=== PATIENT | male | born 1945 | race Caucasian/White ===

== ENCOUNTER → 2018-05-26 14:06 | Outpatient (CLI) | payer MEDICARE, OTHER, SELFPAY ==
[2018-05-26 14:30] LABS: Abs Immature Grans 0.05 k/cumm (0.0-0.09); Absolute Basophil Count 0.04 k/cumm (0.0-0.2); Absolute Eosinophil Count 0.28 k/cumm (0.0-0.7); Absolute Lymphocyte Count 2.37 k/cumm (1.2-3.4); Absolute Monocyte Count 0.88 k/cumm (0.11-0.7); Absolute Neutrophil Count 4.74 k/cumm (1.2-6.7); Basophils % 0.5; Eosinophils % 3.3; HCT 40.7 % (40.0-50.0); HGB 13.9 g/dL (13.5-17.5); Immature Grans % 0.6; Lymphocytes % 28.3; Mean Corp. HGB Concentration 34.2 g/dL (32.0-36.0); Mean Corpuscular Hemoglobin 22.7 pg (27.0-33.0); Mean Corpuscular Volume 66.4 fL (80-95); Mean Platelet Volume 11.5 fL (8.0-11.0); Monocytes % 10.5; Neutrophils % 56.8; Platelet Count 222 x1000/uL (130-400); RBC 6.13 m/cumm (4.50-6.00); RBC Distribution Width 17.7 % (11.8-14.1); White Blood Cell Count 8.36 k/cumm (4.4-10.8)
[2018-05-26 14:58] LABS: Microcytosis 2+
[2018-05-26 15:03] LABS: ESR 10 MM/HR (1-20)
[2018-05-26 17:49] LABS: Potassium 4.8 mmol/L (3.5-5.1); Sodium 143 mmol/L (136-145)
[2018-05-26 17:50] LABS: Albumin 4.5 g/dL (3.4-5.0); Anion Gap 17.4 mmol/L (3-11); BUN 19 mg/dL (7-18); CO2 21.6 mmol/L (21.0-32.0); CREATININE 0.89 mg/dL (0.70-1.30); Chloride 104 mmol/L (98-107); Glucose 90 mg/dL (70-100); Total Protein 7.3 g/dL (6.4-8.2)
[2018-05-26 17:51] LABS: ALT 63 U/L (12-78); Alkaline Phosphatase 95 U/L (46-116); Bilirubin, Total 0.3 mg/dL (0.2-1.0); Creatine Kinase 196 U/L (39-308)
[2018-05-26 17:52] LABS: AST 41 U/L (15-37)
[2018-05-26 17:53] LABS: Calcium 9.1 mg/dL (8.5-10.1)
[2018-05-26 21:35] LABS: TSH 3.52 uIU/ml (0.47-4.68)
[2018-05-29 11:37] LABS: Anaplasma phagocytophilum Negative (Negative); B. miyamotoi PCR Negative (Negative); Babesia divergens/MO-1 Negative (Negative); Babesia duncani Negative (Negative); Babesia microti Negative (Negative); Ehrlichia chaffeensis Negative (Negative); Ehrlichia ewingii/canis Negative (Negative); Ehrlichia muris eauclairensis Negative (Negative)
[2018-05-31 15:03] LABS: T4, Free 1.1 ng/dl (0.8-2.2)
== END ==
PROVIDERS: PCP Family Medicine; Visit Provider Family Medicine
DX: M35.3 Polymyalgia rheumatica (principal); I10 Essential (primary) hypertension; E11.9 Type 2 diabetes mellitus without complications
CPT/HCPCS: 36415; 80053; 82550; 85652; 84439; 84443; 85025; 86618; 87798

== ENCOUNTER 2018-06-16 15:25 | Outpatient (RCR) | payer MEDICARE, OTHER, SELFPAY ==
--- NOTE | 2018-06-16 10:19 | IE_ITS ---
Date: June 16, 2018 Referring: Dr. Shraddha Treviño Diagnosis: Meralgia paresthetica R P.T. Diagnosis: Same, with gluteal tendinopathy and ITB syndrome SUBJECTIVE: History of Present Illness: Ed presents with complaints of R lateral thigh pain, which began about 8 weeks ago. He states that he first began noticing some aching through the buttock region extending into the lateral hip, with symptoms worsening with activities, specifically golfing and his daily walking program. He states that symptoms became quite severe with a biting type pain. Pain extends from the lateral hip down the thigh to the level of the knee. He does describe a sensation of weakness, stating that he is no longer able to get up from a squatting position. He, in fact, intermittently uses a cane, primarily for the purpose of helping him up from a low position. He has been placed on Gabapentin by his physician, and states that since then, his pain has been significantly improved. He continues to have activity dependent discomfort , although to a much tolerable degree. Pain Rating: Varies based on activity. Pt is unable to quantify on VAS. Pain Location: R lateral hip. Prior Level of Function: Active and independent 73 yo male. Pt is retired, although is extremely active with golfing. He also walks 1 mile/day for management of his diabetes. Current Level of Function: Pt does report some difficulty with his daily walks. He states that, at times, requires a standing rest period. Prior to beginning the gabapentin, he had been unable to golf, although has since resumed with good results. He describes difficulty squatting down to the floor, particularly the motion of getting back up and walking longer distances. Comorbidities: Type II diabetes. Falls in the last year: __X__Yes - How many? __1 related to the slip on ice__ - (if over 2, balance SM needs to be completed) Reported hospitalizations in the last year - __X__ No Medications: Flax seed, Nexium, acetaminophen, vitamin C, 81 mg aspirin, Aleve, Lisinopril, Tamsulosin, Januvia, Glimepiride and Gabapentin. Quality of Life: __X__ Good Standardized Measures: LEFS score: __7% deficit__ OBJECTIVE: Posture: Pt demonstrates rounded shoulder forward head posturing with increased thoracic kyphosis and significant cervical protraction. No alteration of stance or forward trunk positioning. Gait: Grossly non-antalgic. He is independent with bed mobility and transfers without any obvious difficulty. Palpation: Mild tenderness along the length of the ITB. Significant tenderness through the gluteal tendons and the gluteal muscle bellies, particularly through the glute med on the R. ROM: Trunk motion is full and pain free. Hip ROM grossly WNL with some mild end range pain at IR, although this allows 30 degrees and is comparable with the L side. He does have diminished piriformis length on the R as compared to the L by greater than 50%. Hamstring length allows 65 degrees bilaterally. Strength: Hip flexion 4/5 R, 5/5 L Hip IR 4/5 bilaterally, ER 4/5 bilaterally Quads 5/5 bilaterally Hamstrings 4/5 bilaterally Ankle dorsiflexion 5/5 bilaterally Glute med R 3+/5 with positive pain reproduction through the lateral hip Neuro: Dermatomes and myotomes WNL. DTRs 1+ for the patella tendon reflex bilaterally, absent at the Achilles. Special Tests: Pt has a positive Cuate test on the R with knee 2 in. from the plinth. SLR is negative. Slump test negative. Treatment: Today's session consisted of evaluation, followed by long discussion regarding appropriate treatment planning and care. Pt received trigger point release to the gluteus medius and cross friction massage to the gluteal tendons. He was instructed in a HEP beginning with pelvic tilts and transverse abdominal activation, progressing to bridges and prone hip extension. He requires verbal and tactile cues for appropriate completion, although with excellent carry over. IE: X [id number] Therapeutic procedures ([id number]). Direct treatment time: 60 min Total treatment time: 60 min ASSESSMENT: Patient is a 73-year-old male, referred for PT services with the diagnosis of meralgia paresthetica on the R. Patient presents with clinical signs and symptoms consistent with diagnosis with associated gluteal weakness and ITB syndrome, which I suspect are contributing to his diagnosis. He did demonstrate significant muscle imbalance today, and I anticipate that he will do well with a progressive strengthening program. This is very well timed given that he has had significant symptom reduction on gabapentin, which will likely allow him to tolerate progressive strengthening program better. He is currently demonstrating the following impairment level findings: decreased muscle length through the R piriformis, hamstrings and ITB, soft tissue dysfunction, decreased strength through the RLE, pain. Impairments are contributing to the following functional limitations: difficulty participating in his normal recreational activities, specifically golfing and walking program, difficulty walking longer distances, unable to independently transition from squat position to standing without UE support, pain with activity. Patient is assessed as: __X__ Moderate 35146 complexity, based on the following: History: (list): Insidious onset R thigh pain in pt with type II diabetes and advanced age. Examination: (list): X See above for functional limitations and impairments. Presentation: X Evolving Decision-Making: X Moderate complexity __X__ Patient requires skilled PT intervention to remediate the above functional limitations to return to: __X__ Premorbid level of function __X__ Return to full functional mobility __X__ Return to work demands __X__ Improve QOL ____ Other: Prognosis: __X__ Good G-Codes (fill in modifier after appropriate code): Patient's primary functional limitation is in the category of: __X__ Mobility - walking and moving around : [id number] based on LEFS score Projected goal: ___X_ Mobility - walking and moving around: [id number] [] KX modifier to be utilized as justified by above documentation for necessity of continued Physical Therapy intervention to attend to functional deficits which have not been fully remediated as they approach their Medicare cap. STG: __6__ weeks. 1. Pt able to complete walking program without pain. 2. Able to tolerate introduction of exercise program without increase in symptoms. LTG: __12__ weeks. 1. Pt able to resume golf 2x/week without pain. 2. Fully independent in self management of symptoms. 3. Resolution of symptoms of lateral thigh pain. PLAN: Patient to be seen 1 x per week, for 12 weeks, adjusting frequency of visits per patient symptoms and response to treatment. Treatment will consist of manual mobilization and progressive strengthening. Will instruct pt in progressive gluteal strengthening program with both open and closed chain strengthening activities. Will incorporate manual stretching through the LE's and DTM techniques through the hip musculature. Will also consider utilization of dry needling techniques for [facility] services shoulder pt continue to have significant soft tissue dysfunction. Will instruct him in a progressive strengthening program as he is able to tolerate. Thank you for this referral. Please do not hesitate to contact me with any questions or concerns regarding this patient's plan of care. SS/fw MEDICAREDr. Llanes, please sign below and return to PT if you agree with above POC. Gilberto Llanes MD Date
== END 2018-06-23 23:59 | disposition home or self-care (01) ==
LOC: PT 15:25
PROVIDERS: PCP Family Medicine; Referring Provider Family Medicine; Visit Provider Family Medicine
DX: G57.11 Meralgia paresthetica, right lower limb (principal); M76.01 Gluteal tendinitis, right hip; M76.31 Iliotibial band syndrome, right leg
CPT/HCPCS: 97110; 97162; G8978

== ENCOUNTER 2018-11-07 09:03 | Outpatient (CLI) | payer MEDICARE, OTHER, SELFPAY ==
[2018-11-07 09:49] LABS: Bilirubin Negative (Negative); Blood Negative (Negative); Clarity Clear; Glucose Negative (Negative); Ketones Negative (Negative); Leukocyte Esterase Negative (Negative); Nitrite Negative (Negative); Urobilinogen 0.2 EU/dL (Up TO 0.2)
[2018-11-07 09:53] LABS: Abs Immature Grans 0.04 k/cumm (0.0-0.09); Absolute Basophil Count 0.04 k/cumm (0.0-0.2); Absolute Eosinophil Count 0.16 k/cumm (0.0-0.7); Absolute Lymphocyte Count 2.33 k/cumm (1.2-3.4); Absolute Monocyte Count 0.76 k/cumm (0.11-0.7); Absolute Neutrophil Count 4.32 k/cumm (1.2-6.7); Basophils % 0.5; Eosinophils % 2.1; HCT 41.4 % (40.0-50.0); HGB 13.6 g/dL (13.5-17.5); Immature Grans % 0.5; Lymphocytes % 30.5; Mean Corp. HGB Concentration 32.9 g/dL (32.0-36.0); Mean Corpuscular Hemoglobin 21.8 pg (27.0-33.0); Mean Corpuscular Volume 66.2 fL (80-95); Mean Platelet Volume 11.6 fL (8.0-11.0); Monocytes % 9.9; Neutrophils % 56.5; RBC 6.25 m/cumm (4.50-6.00); RBC Distribution Width 17.7 % (11.8-14.1); White Blood Cell Count 7.65 k/cumm (4.4-10.8)
[2018-11-07 10:06] LABS: Anisocytosis 1+; Diff Comment RBC Morph Reviewed; Hypochromasia 1+; Microcytosis 2+; Platelet Count 207 x1000/uL (130-400); Polychromasia Present
[2018-11-07 10:07] LABS: Poikilocytes 1+
[2018-11-07 10:43] LABS: ALT 75 U/L (12-78); AST 34 U/L (15-37); Albumin 4.4 g/dL (3.4-5.0); Alkaline Phosphatase 93 U/L (46-116); Anion Gap 9.3 mmol/L (3-11); BUN 19 mg/dL (7-18); Bilirubin, Total 0.4 mg/dL (0.2-1.0); CO2 30.7 mmol/L (21.0-32.0); Calcium 9.8 mg/dL (8.5-10.1); Chloride 101 mmol/L (98-107); Glucose 110 mg/dL (70-100); Potassium 4.2 mmol/L (3.5-5.1); Sodium 141 mmol/L (136-145); Total Protein 7.6 g/dL (6.4-8.2)
[2018-11-07 10:52] LABS: TSH (W/Ref FT4) 3.01 uIU/mL (0.358-3.74)
== END 2018-11-07 09:23 ==
PROVIDERS: PCP Family Medicine; Visit Provider Family Medicine
DX: I88.9 Nonspecific lymphadenitis, unspecified (principal); M35.3 Polymyalgia rheumatica; I10 Essential (primary) hypertension; E11.9 Type 2 diabetes mellitus without complications
CPT/HCPCS: 36415; 80053; 81003; 84443; 85025

== ENCOUNTER → 2019-02-27 08:50 | Outpatient (BNVA) | payer MEDICARE, OTHER, SELFPAY | PROVIDERS: PCP Family Medicine; Referring Provider Family Medicine; Visit Provider Orthopaedic Surgery | DX: M65.332 Trigger finger, left middle finger (principal); M65.342 Trigger finger, left ring finger; E11.9 Type 2 diabetes mellitus without complications; I10 Essential (primary) hypertension; Z79.84 Long term (current) use of oral hypoglycemic drugs | CPT/HCPCS: 99211; 99213 ==

== ENCOUNTER 2019-03-09 06:30 | Day surgery (SDC) | payer MEDICARE, SELFPAY ==
[2019-03-09 06:39] VITALS: BP 160/87; PULSE 76; RESP 16; TEMP 36.9; O2SAT 98
[2019-03-09] MEDS: Lidocaine 2% Multi-Dose 50 ML VIAL (07:30)
--- NOTE | 2019-03-09 07:59 | W.PM.DSUDISC ---
Discharge Plan Disposition Patient Disposition: HOME Condition: Improving Discharge Details Attending Provider: Anibal Modi Primary Care Provider: Gilberto Llanes Home Meds and New Rx's Prescriptions: No Action OneTouch Ultra Test strip 1 ea Miscellaneous BID Qty: 200 RF: 3 Januvia 100 mg tablet 100 mg PO DAILY Qty: 30 RF: 6 glimepiride 1 mg tablet 1 mg PO DAILY Qty: 90 RF: 3 flaxseed-omega3,6,9-fatty acid 1 EACH capsule 1 ea PO DAILY RF: 0 Nexium 24HR 20 MG capsule,delayed release(DR/EC) 20 mg PO DAILY RF: 0 acetaminophen [Acetaminophen Extra Strength] 500 MG tablet 500 mg PO Q4H PRN RF: 0 PreserVision AREDS-2 1 EACH capsule 1 ea PO DAILY RF: 0 aspirin [Aspir-81] 81 MG tablet,delayed release (DR/EC) 81 mg PO DAILY RF: 0 naproxen sodium [Aleve] 220 MG tablet 220 mg PO Q8H PRN RF: 0 lancets [OneTouch UltraSoft Lancets] 1 EACH misc 1 ea Miscellaneous BID Qty: 200 RF: 3 blood-glucose meter [OneTouch Ultra2] 1 EACH kit 1 ea Miscellaneous BID Qty: 1 RF: 1 lisinopril 5 mg tablet 5 mg PO DAILY Qty: 90 RF: 3 tamsulosin 0.4 mg capsule 0.4 mg PO DAILY Qty: 90 RF: 3 fluticasone propionate 16 GM spray,suspension 2 inh NS PRN Qty: 1 RF: 3 Discharge Instructions Additional Instructions: Keep your left hand elevated above heart level as needed to help control pain and swelling. You may flex and extend all the fingers of your left hand as comfort allows. Expect a small amount of drainage on the gauze bandages. For showering tomorrow, cover your left hand with a plastic bag and a rubber band about the upper forearm to keep the bandages dry and allow the wounds to seal. On 03/11/19, you may remove all of your bandages and get your wounds wet in the shower with soap and water. Gently pat the stitches dry and cover them with bandaids, or gauze or a clean fingerless cotton glove to keep the stitches from catching. Resume normal activities as tolerated. Take your usual medications as before. Take tylenol, advil or aleve for milder pain. Tylenol maybe taken at the same time as advil, or at the same time as aleve as they are metabolized differently and are not cross toxic. Follow up with Dr. Modi in 1 week for stitch removal. Activity:: Elevate Remove Dressings/Wound Care:: 48 hours Shower/Bathe:: 24 hours and Cover Diet:: As Tolerated Discharge Orders Discharge Orders: Discharge Order (Routine); Ordered 03/09/19 Ordered By: Anibal Modi DS: Diagnosis Discharge Diagnosis (1) Trigger finger, right ring finger: Status: Acute (2) Trigger finger, right middle finger: Status: Acute
--- NOTE | 2019-03-09 11:34 | ROE_ITS ---
DATE OF PROCEDURE: March 09, 2019 PREOPERATIVE DIAGNOSIS: Trigger fingers, left middle and left ring fingers. POSTOPERATIVE DIAGNOSIS: Same. PROCEDURE: Release A-1 pulleys to left ring and middle fingers. SURGEON: Anibal Modi M.D. LABORATORY MACHINIST: Tech ANESTHETIC: 2% Lidocaine plain. PREP: ChloraPrep. INDICATIONS: This patient has had longstanding triggering of the ring and middle fingers of his left hand. It interferes with his hobby of playing golf. He was seen by me in the office about 2 to 3 w eeks ago and I recommended trigger finger releases. He had had previous trigger finger surgery by me a few years ago on the right hand with no complications. I reviewed the planned procedure with him in the office and re-reviewed them today in the Day Surgery holding area. I marked his left ring and middle fingers with a surgical skin marker. He wished to proceed. PROCEDURE DESCRIPTION: The patient was taken to the Operating Room and his left hand was prepped wit h ChloraPrep. Sterile drapes were applied. A time-out was instituted. I then used 2% Lidocaine over the metacarpophalangeal joint region of both the middle and ring finger s to create an anesthetic wheal. I then waited an appropriate amount of time to make sure there was complete anesthesia to the fingertips of the middle and ring fingers. Once this was accomplished, I made a transverse incision near the metacarpophalangeal joint crease in the palm. This was about 3/8 of an inch long. After solely incising the skin with a #15 scalpel blade, retraction was done with Ragnell retractors and blunt dissection was used to identify the flexor tendon sheath. Under direct vision, a #15 scalpel blade was used to make a small knick in the sheath and then this was extended w rebeca Galvez scissors. I then had the patient flex his middle finger and he could do so without any t riggering. It was triggering prior to the beginning of surgery today. Having verified that the zack ent could make a tightly clenched fist and that there was no triggering, I then proceeded to make a s imilar 3/8-inch incision over the metacarpophalangeal joint of the ring finger. Again, loupe magnifi cation was utilized throughout and blunt dissection was used to identify the flexor tendon sheath. T his was incised with a #15 scalpel blade, making a small knick in it and then extending the incision proximally. I then had him flex and extend his ring finger and it was no longer triggering. Again, it had been triggering right before today's surgical intervention. I then showed the patient his joshi d and had him make a tightly clenched fist and demonstrated full flexion and extension. The wounds w ere irrigated with saline and closed with a single suture of #4-0 Nylon in a horizontal mattress fash ion. The wound was dressed with Xeroform gauze 4x4's and a 2-inch conforming gauze bandage. He was taken to the outpatient recovery room in satisfactory condition, tolerating the procedure well.
== END 2019-03-09 08:20 | disposition home or self-care (01) ==
PROVIDERS: PCP Family Medicine; Visit Provider Orthopaedic Surgery
PROC: (CPT 26055; principal; 2019-03-09 07:30)
DX: M65.332 Trigger finger, left middle finger (principal); M65.342 Trigger finger, left ring finger
CPT/HCPCS: 26055

== ENCOUNTER 2020-03-28 11:01 | Outpatient (REF) | payer MEDICARE, OTHER, SELFPAY ==
[2020-03-28 18:54] LABS: Abs Immature Grans 0.06 k/cumm (0.0-0.09); Absolute Basophil Count 0.04 k/cumm (0.0-0.2); Absolute Eosinophil Count 0.27 k/cumm (0.0-0.7); Absolute Lymphocyte Count 2.04 k/cumm (1.2-3.4); Absolute Monocyte Count 0.91 k/cumm (0.11-0.7); Absolute Neutrophil Count 5.03 k/cumm (1.2-6.7); Basophils % 0.5; Eosinophils % 3.2; HCT 37.9 % (40.0-50.0); HGB 12.6 g/dL (13.5-17.5); Immature Grans % 0.7 %; Lymphocytes % 24.4; Mean Corp. HGB Concentration 33.2 g/dL (32.0-36.0); Mean Corpuscular Hemoglobin 22.2 pg (27.0-33.0); Mean Corpuscular Volume 66.7 fL (80-95); Mean Platelet Volume 11.9 fL (8.0-11.0); Monocytes % 10.9; Neutrophils % 60.3; Platelet Count 228 x1000/uL (130-400); RBC 5.68 m/cumm (4.50-6.00); RBC Distribution Width 17.6 % (11.8-14.1); White Blood Cell Count 8.35 k/cumm (4.4-10.8)
[2020-03-28 19:42] LABS: ESR 16 mm/hr (1-20)
== END 2020-03-28 11:21 ==
LOC: LBN 11:01
PROVIDERS: PCP Family Medicine; Visit Provider Family Medicine
DX: I88.8 Other nonspecific lymphadenitis (principal)
CPT/HCPCS: 85652; 85025

== ENCOUNTER 2020-04-04 03:35 | Outpatient (CLI) | payer MEDICARE, OTHER, SELFPAY ==
--- NOTE | 2020-04-04 07:45 | DI.US_ITS ---
EXAM: US SOFT TISSUE HEAD OR NECK CLINICAL HISTORY: Painful lymphadenitis, L side,i88.9. TECHNIQUE: Ultrasound was performed using standard protocol. COMPARISON: No exams were available for comparison FINDINGS: Sonographic assessment utilizing grayscale and color Doppler imaging was performed and targeted to th e area of clinical concern. There is a 1.1 x 0.8 x 1.2 cm hypoechoic nodule with an echogenic vascular center consistent with a s onographically benign-appearing lymph node. This appears to correspond to the palpable abnormality. It lies adjacent to the parotid gland. IMPRESSION: Sonographically benign-appearing lymph node corresponds to the palpable abnormality as identified by the patient. DATA REPOSITORY:
== END 2020-04-04 03:55 ==
PROVIDERS: PCP Family Medicine; Visit Provider Family Medicine
DX: I88.8 Other nonspecific lymphadenitis (principal); R59.0 Localized enlarged lymph nodes
CPT/HCPCS: 76536

== ENCOUNTER 2020-07-11 04:18 | Outpatient (RCR) | payer MEDICARE, OTHER, SELFPAY | END 2020-07-23 23:59 | disposition home or self-care (01) | LOC: INF 04:18 | PROVIDERS: PCP Family Medicine; Visit Provider Family Medicine | DX: Z87.891 Personal history of nicotine dependence (principal) ==

== ENCOUNTER 2020-08-25 14:38 | Outpatient (CLI) | payer MEDICARE, OTHER, SELFPAY ==
--- NOTE | 2020-08-25 14:15 | DI.RAD_ITS ---
EXAM: XR LUMBAR SPINE COMPLETE CLINICAL HISTORY: left lower extremity sensation. TECHNIQUE: 2D digital imaging was performed. COMPARISON: No exams were available for comparison FINDINGS: There are 5 lumbar type vertebral bodies. No spondylolysis or spondylolisthesis. Disc heights are w ell maintained. There are endplate osteophytes throughout the lumbar spine. Degenerative facet arth ropathy is present at L4-5 and L5-S1. No acute fracture or subluxation. Atherosclerosis is present. IMPRESSION: Degenerative changes in the lumbar spine. DATA REPOSITORY: RADIATION DOSE DELIVERED:
--- NOTE | 2020-08-25 14:32 | DI.RAD_ITS ---
EXAM: XR KNEE RT 3V AP,LAT,ELIAN CLINICAL HISTORY: right knee pain. TECHNIQUE: 2D digital imaging was performed. COMPARISON: CR CHEST 2 VIEWS PA,LAT from 03/14/2015 FINDINGS: BONES: No acute fracture is present. No bony destructive lesion is seen. Small enthesophytes at the s uperior and inferior patella. JOINTS: The knee is normally aligned. No joint effusion is seen. Small posterior osteophytes at the p atella. SOFT TISSUE: Vascular calcifications. IMPRESSION: Mild degenerative changes of the knee. DATA REPOSITORY: RADIATION DOSE DELIVERED:
--- NOTE | 2020-08-25 14:34 | DI.RAD_ITS ---
EXAM: XR KNEE LT 3V AP,LAT,ELIAN CLINICAL HISTORY: left knee DJD. TECHNIQUE: 2D digital imaging was performed. COMPARISON: CR XR KNEE RT 3V AP,LAT,ELIAN from 08/25/2020 FINDINGS: BONES: No acute fracture is present. No bony destructive lesion is seen. JOINTS: The knee is normally aligned. No joint effusion is seen. Mild patellar spurring. SOFT TISSUE: Vascular calcifications. IMPRESSION: Mild degenerative changes of the left knee. DATA REPOSITORY: RADIATION DOSE DELIVERED:
== END 2020-08-25 14:58 ==
PROVIDERS: PCP Family Medicine; Referring Provider Family Medicine; Visit Provider Student in an Organized Health Care Education/Training Program
DX: M17.0 Bilateral primary osteoarthritis of knee (principal); M47.816 Spondylosis without myelopathy or radiculopathy, lumbar region; M25.562 Pain in left knee; M25.561 Pain in right knee; M79.605 Pain in left leg; M54.5 Low back pain; G89.29 Other chronic pain; I10 Essential (primary) hypertension
CPT/HCPCS: 73562; 99203; 99214; 72110

== ENCOUNTER → 2020-10-07 10:52 | Outpatient (BNVA) | payer MEDICARE, OTHER, SELFPAY | PROVIDERS: PCP Family Medicine; Referring Provider Family Medicine; Visit Provider Surgery | DX: K92.1 Melena (principal); Z86.010 Personal history of colon polyps | CPT/HCPCS: 99213 ==

== ENCOUNTER 2020-10-29 14:47 | Emergency (ER) | payer MEDICARE, OTHER, SELFPAY ==
[2020-10-29] VITALS (44 sets, daily range): BP systolic 109–172; BP diastolic 60–111; PULSE 80–111; RESP 8–20; TEMP 36.3; O2SAT 95–100
--- NOTE | 2020-10-29 14:45 | RT.EKG_ITS ---
APPROVED REPORT Exam: Resting ECG Patient Location: E HR:104 bpm ECG Measurements Heart Rate 104 AXIS OH 159 P 53 QRSd 112 QRS -53 QT 359 T 20 QTc 471 Conclusion Sinus tachycardia...rate> 99 Incomplete RBBB and LAFB...axis(240,-40), S>R II III aVF Nonspecific ST depression...ST <-0.10mV, any 2 leads
[2020-10-29] MEDS: methylPREDNISolone SUCC 125 MG VIAL (15:06)
[2020-10-29] MEDS: diphenhydrAMINE 50 MG/ML VIAL (15:06)
[2020-10-29] MEDS: FAMOTIDINE 20 MG/50 ML BAG 50 MG (15:07)
--- NOTE | 2020-10-29 15:24 | ED.GENADUL_ITS ---
Discharge Plan Disposition Patient Disposition: HOME Condition: Stable Discharge Details Clinical Impression: Severe allergic reaction, Hyperglycemia Primary Care Provider: Gilberto Llanes ED Provider: Beny Penny Home Meds and New Rx's Prescriptions: New prednisone 20 mg tablet 40 mg PO DAILY Qty: 8 RF: 0 diphenhydramine HCl [Benadryl] 25 mg capsule 25 mg PO TID PRNQty: 9 RF: 0 Continued (DME) OneTouch Ultra Test strip 1 ea Miscellaneous BID Qty: 200 RF: 3 bisacodyl [Dulcolax (bisacodyl)] 5 mg tablet,delayed release (DR/EC) 5 mg PO ONCE Qty: 4 RF: 0 polyethylene glycol 3350 17 gram powder in packet 255 g PO DAILY Qty: 15 RF: 0 flaxseed-omega3,6,9-fatty acid 1 EACH capsule 1 ea PO DAILY RF: 0 Nexium 24HR 20 MG capsule,delayed release(DR/EC) 20 mg PO DAILY RF: 0 acetaminophen [Acetaminophen Extra Strength] 500 MG tablet 500 mg PO Q4H PRN RF: 0 PreserVision AREDS-2 1 EACH capsule 1 ea PO DAILY RF: 0 aspirin [Aspir-81] 81 MG tablet,delayed release (DR/EC) 81 mg PO DAILY RF: 0 Hold Instructions: Home Medication placed on hold at Doctor's office naproxen sodium [Aleve] 220 MG tablet 220 mg PO Q8H PRN RF: 0 (DME) lancets [OneTouch UltraSoft Lancets] 1 EACH misc 1 ea Miscellaneous BID Qty: 200 RF: 3 (DME) blood-glucose meter [GoodpatchTouch Ultra2 Meter] 1 EACH kit 1 ea Miscellaneous BID Qty: 1 RF: 1 Januvia 100 mg tablet 100 mg PO DAILY Qty: 90 RF: 3 avastin OD RF: 0 lisinopril 5 mg tablet 5 mg PO DAILY Qty: 90 RF: 3 glimepiride 1 mg tablet 1 mg PO DAILY Qty: 90 RF: 3 finasteride 5 mg tablet 5 mg PO DAILY Qty: 90 RF: 3 tamsulosin 0.4 mg capsule 0.4 mg PO DAILY Qty: 90 RF: 3 fluticasone propionate 16 GM spray,suspension 2 inh NS PRN Qty: 1 RF: 3 Discontinued amoxicillin 875 mg tablet 875 mg PO BID Qty: 20 RF: 0 Discharge Instructions Instructions: Diabetic Hyperglycemia (ED), General Allergic Reaction (ED) Additional Instructions: Your blood sugar today was elevated. You received IV fluid and it did improve slightly. Please contact your primary care physician to arrange follow-up. You may need medication adjustment to control your diabetes if your sugars remain elevated. Return to the ER for any worsening or new concerning symptoms. Referrals: Gilberto Llanes, DO [Primary Care Provider] - Medical Decision Making 1533??75-year-old male here with immediate allergic reaction to amoxicillin. Patient notes symptoms improving. Airway intact. Hemodynamically stable. I will give IV fluid bolus, Pepcid, Benadryl, and Solu-Medrol IV. Plan to reassess. I spoke with the patient about his condition and treatment plan. Patient had complained of some tightness in his neck to nursing and a protocol and ECG was obtained. Screening EKG reviewed and interpreted by me: Nondiagnostic, no STEMI, please see report. 1900 --patient reassessed multiple times. He had complete resolution of his symptoms. Initial labs revealed hyperglycemia with a mild anion gap acidosis. No ketones in his urine. He received crystalloid bolus and chemistry was repeated. He continues to have hyperglycemia although this is improved and no longer has anion gap acidosis. He notes that he only recently restarted Januvia and that typically his blood sugar is in the 100s when he checks in the morning.Patient will need timely follow-up with his PCP regarding hyperglycemia with consideration for transition to insulin therapy. Patient will be monitoring his blood glucose closely. Plan to discharge the patient on prednisone and Benadryl and have him follow-up with PCP to call tomorrow. He was encouraged to return immediately for any worsening or new concerning symptoms. He understands he should not take amoxi cillin or penicillins in the future. HPI General Mode of arrival: ambulatory . Date/Time Provider Initiated Documentation: 10/29/20 15:19 . Limitations to Documentation: no limitations . Information obtained by: patient . HPI Narrative: 75yo male presents with chief complaint of allergic reaction. Patient notes the he had a small lump inferior to his left ear and took a dose of amoxicillin. He has done this in the past for similar and it has improved while. He has tolerated amoxicillin in the past. Today about half hour after taking amoxicillin he developed full body itchy red rash, feeling of nausea and loose stool. He also notes some tightness in his neck and throat. Symptoms are moderate to severe, improving since onset about 45 minutes ago. He did not try any treatment prior to arrival. No modifiers. Related Data Home Medications Medication Instructions Recorded Confirmed flaxseed-omega3,6,9-fatty acid 1 ea PO DAILY 12/25/12 10/29/20 Nexium 24HR 20 mg PO DAILY 08/12/14 10/29/20 acetaminophen [Acetaminophen Extra 500 mg PO Q4H PRN tab-cap 05/20/15 10/29/20 Strength] PreserVision AREDS-2 1 ea PO DAILY 07/04/15 10/29/20 aspirin [Aspir-81] 81 mg PO DAILY tab-cap 07/05/16 10/28/20 fluticasone propionate 2 inh NS PRN #1 07/13/16 10/29/20 naproxen sodium [Aleve] 220 mg PO Q8H PRN tab-cap 11/29/16 10/29/20 blood-glucose meter [OneTouch #1 kit 02/28/17 10/28/20 Ultra2 Meter] lancets [OneTouch UltraSoft #200 ea 02/28/17 10/28/20 Lancets] blood sugar diagnostic #200 strip 07/07/18 10/28/20 sitagliptin 100 mg tablet 100 mg PO DAILY #90 tab 01/10/20 10/29/20 avastin OD 01/15/20 10/28/20 lisinopril 5 mg tablet 5 mg PO DAILY #90 tab 02/14/20 10/29/20 glimepiride 1 mg tablet 1 mg PO DAILY #90 tab-cap 03/20/20 10/29/20 finasteride 5 mg tablet 5 mg PO DAILY #90 tab 07/14/20 10/29/20 bisacodyl 5 mg tablet,delayed 5 mg PO ONCE #4 tab 10/07/20 10/29/20 release polyethylene glycol 3350 17 gram 255 g PO DAILY #15 ea 10/07/20 10/29/20 oral powder packet tamsulosin 0.4 mg capsule 0.4 mg PO DAILY #90 tab-cap 10/13/20 10/29/20 diphenhydramine HCl [Benadryl] 25 mg PO TID PRN #9 cap 10/29/20 prednisone 40 mg PO DAILY #8 tab 10/29/20 Previous Rx's Medication Instructions Recorded blood sugar diagnostic #200 strip 07/07/18 sitagliptin 100 mg tablet 100 mg PO DAILY #90 tab 01/10/20 lisinopril 5 mg tablet 5 mg PO DAILY #90 tab 02/14/20 glimepiride 1 mg tablet 1 mg PO DAILY #90 tab-cap 03/20/20 finasteride 5 mg tablet 5 mg PO DAILY #90 tab 07/14/20 bisacodyl 5 mg tablet,delayed 5 mg PO ONCE #4 tab 10/07/20 release polyethylene glycol 3350 17 gram 255 g PO DAILY #15 ea 10/07/20 oral powder packet tamsulosin 0.4 mg capsule 0.4 mg PO DAILY #90 tab-cap 10/13/20 diphenhydramine HCl [Benadryl] 25 mg PO TID PRN #9 cap 10/29/20 prednisone 40 mg PO DAILY #8 tab 10/29/20 Allergies Allergy/AdvReac Type Severity Reaction Status Date / Time amoxicillin Allergy Severe Anaphylaxsi Unverified 10/29/20 15:43 s niacin Allergy rash Verified 10/07/20 10:57 atorvastatin calcium AdvReac muscle pain Verified 10/07/20 10:57 [From Lipitor] lansoprazole [From Prevacid] AdvReac diarrhea Verified 10/07/20 10:57 metformin AdvReac diarrhea Verified 10/07/20 10:57 omeprazole [From Prilosec] AdvReac diarrhea Verified 10/07/20 10:57 omeprazole magnesium AdvReac diarrhea Verified 10/07/20 10:57 [From Prilosec] pantoprazole sodium AdvReac diarrhea Verified 10/07/20 10:57 [From Protonix] General Stated Complaint: Allergic VINNIE: 3 Review of Systems All systems reviewed & are unremarkable except as noted in HPI and below Constitutional Constitutional: Denies chills and Denies fever(s) Cardiovascular Cardiovascular: Denies dyspnea Respiratory Respiratory: Denies dyspnea Gastrointestinal Gastrointestinal: Reports as per HPI and Denies abdominal pain PFSH Medical History Age-related macular degeneration (01/01/14) Dr Zee rx eye injections. Series of 3 injections with Avastin #1 05/30/18 #2 07/11/18 #3 11/17/18 Allergic rhinitis due to pollen (11/07/05) 10/2005 Benign prostatic hyperplasia without lower urinary tract symptoms (11/23/99) Degenerative joint disease (DJD) of lumbar spine Essential hypertension (03/24/01) goal <140/80 due to DM2 Gastroesophageal reflux disease (10/23/99) nexium effective; ? Tan's on EGD 12/02/1999 neg path; neg 2005 [place] Hyperlipidemia (02/20/98) 08/2001 statin; risk 27%, LDL goal 100; very low HDL and high TG Impotence (10/23/99) Knee pain, left (03/11/15) trauma 06/2014; medial L knee pain; x-ray mild DJD at most Lower urinary tract symptoms (LUTS) 11/1999; rx doxazosin, chg to tamsulosin 06/2015 Lymphadenopathy of left cervical region Nonalcoholic steatohepatitis (GRAHAM) 11/01; ABNL LFT AND US, US REPEAT 2011 Rectal polyp (07/13/16) Biopsy shows fragment of hyperplastic polyp Sensorineural hearing loss, bilateral (05/05/18) Sensorineural hearing loss, unilateral (04/04/17) Sigmoid polyp (07/13/16) Biopsy shows fragment of tubular adenoma Thalassemia minor (03/12/98) low MCV, Hue trait on Hb test 02/28 Tubular adenoma of colon (07/13/16) Type II diabetes mellitus, uncontrolled Goal A1c<7.5 Unspecified arthropathy, pelvic region and thigh (07/24/10) Right hip pain - likely arthritis - 08/02 Surgical History Colonoscopy - MAC (07/13/16) [place]03[place]24[place]12[place] [facility] [place] ALSO MAC DEG Repair of umbilical hernia (03/16/11) Dr Ger Gay Family History Mother Age: 99 No problems noted. Father , pneumonia at age 90. No problems noted. Sister No problems noted. Sister No problems noted. Sister No problems noted. Sister No problems noted. Sister No problems noted. Sister No problems noted. Brother Diabetes Brother No problems noted. Brother No problems noted. 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 Working smoke detector in home: Yes Fire extinguisher in home: Yes Carbon monox detector in home: Yes Do you feel safe at home: Yes Do you feel safe in your relationship?: Yes Exam Const General: cooperative and healthy appearing [facility] Head: normocephalic Face and sinus: normal facial exam and sinuses nontender Mouth: moist mucous membranes Throat: posterior oropharynx normal Other: No significant swelling or inflammation of his left face or periauricular area Eyes Conjunctivae: normal conjunctivae Sclera: normal sclerae Neck Neck: trachea midline and supple Resp Auscultation: clear to auscultation bilaterally, no rales, no rhonchi and no wheezes Cardio Rate: regular rate and not tachycardic Rhythm: regular rhythm GI Palpation: soft, not firm, no guarding, no masses, not rigid and nontender Skin Rashes: rashes noted (Erythema neck chest bilateral upper extremities) Neuro General: patient alert, patient awake and tone normal Extrem General: no edema Psych Appearance: grossly normal Mental Status: mental status grossly normal Course Vital Signs Vital signs: Vital Signs Pulse Oximetry 96 10/29/20 14:53 Temperature 36.3 C L 10/29/20 14:57 Temperature Source Temporal Artery Scan 10/29/20 14:57 Pulse 89 10/29/20 15:15 Pulse 92 H 10/29/20 15:15 Respiratory Rate 10 L 10/29/20 15:15 Respiratory Effort Non-Labored 10/29/20 15:03 Respiratory Pattern Normal 10/29/20 15:04 Blood Pressure 133/71 10/29/20 15:15 Blood Pressure Mean 85 10/29/20 15:15 Blood Pressure Position Sitting 10/29/20 14:57 Pulse Oximetry 100 10/29/20 15:15 Oxygen Delivery Method Room Air 10/29/20 14:57 Oxygen Flow Rate 0 10/29/20 14:57 Pain Level 0 10/29/20 14:57
[2020-10-29 15:49] LABS: Abs Immature Grans 0.07 10^3/uL (0.0-0.06); Absolute Basophil Count 0.04 10^3/uL (0.0-0.2); Absolute Eosinophil Count 0.13 10^3/uL (0.0-0.7); Absolute Lymphocyte Count 2.79 10^3/uL (1.2-3.4); Absolute Monocyte Count 0.39 10^3/uL (0.1-0.8); Basophils % 0.6; Eosinophils % 1.9; HCT 44.2 % (40.0-50.0); HGB 14.2 g/dL (13.5-17.5); Lymphocytes % 39.7; MCH 22.2 pg (27.0-33.0); MCHC 32.1 % (32.0-36.0); MCV 69.1 fL (80-95); MPV 11.7 fL (8.0-11.0); Monocytes % 5.6; Neutrophils % 51.2; Nucleated RBC 0 %; RDW 17.3 % (11.8-14.1); RDW-SD 38.4 fL; WBC 7.02 10^3/uL (4.4-10.8)
[2020-10-29 16:06] LABS: Albumin 4.1 g/dL (3.4-5.0); Alkaline Phosphatase 104 U/L (46-116); Anion Gap 14.6 mmol/L (3-11); BUN 21 mg/dL (7-18); Bilirubin, Total 0.6 mg/dL (0.2-1.0); CO2 21.4 mmol/L (21.0-32.0); CREATININE 1.46 mg/dL (0.70-1.30); Calcium 8.9 mg/dL (8.5-10.1); Chloride 100 mmol/L (98-107); Estimated GFR 47.33 (mL/min/1.73m2); Glucose 334 mg/dL (74-106); Sodium 136 mmol/L (136-145)
[2020-10-29 16:16] LABS: Anisocytosis 1+; Diff Comment RBC Morph Reviewed; Microcytosis 2+; Platelet Count 234 10^3/uL (130-400)
[2020-10-29 16:17] LABS: Poikilocytes 2+
[2020-10-29] MEDS: Normal Saline 1,000 ML 1000 ML IV (16:34)
[2020-10-29 16:53] LABS: ALT 89 U/L (16-63); AST 35 U/L (15-37)
[2020-10-29 16:55] LABS: Total Protein 7.6 g/dL (6.4-8.2)
[2020-10-29 17:12] LABS: Bilirubin Negative (Negative); Blood Negative (Negative); Clarity Clear (Clear); Glucose 500 mg/dL (Negative); Ketones Negative (Negative); Leukocyte Esterase Negative (Negative); Nitrite Negative (Negative); Urobilinogen 0.2 EU/dL (Up TO 0.2); pH 6.5 (5-8)
[2020-10-29 17:32] LABS: Bacteria Negative HPF (Negative); C & S Indicated? No; Casts 10-20 Hyaline LPF (Negative); Crystals Negative HPF (Negative); Epithelial Cells Negative HPF (Negative); Mucus Negative (Negative)
[2020-10-29 18:38] LABS: BUN 19 mg/dL (7-18); CREATININE 1.18 mg/dL (0.70-1.30); Chloride 105 mmol/L (98-107); Glucose 296 mg/dL (74-106); Potassium 4.7 mmol/L (3.5-5.1); Sodium 138 mmol/L (136-145)
== END 2020-10-29 19:25 | disposition home or self-care (01) ==
PROVIDERS: Emergency Provider Student in an Organized Health Care Education/Training Program; PCP Family Medicine
DX: R21 Rash and other nonspecific skin eruption (principal); R09.89 Other specified symptoms and signs involving the circulatory and respiratory systems; T36.0X5A Adverse effect of penicillins, initial encounter; E11.65 Type 2 diabetes mellitus with hyperglycemia; Z79.84 Long term (current) use of oral hypoglycemic drugs; I10 Essential (primary) hypertension
CPT/HCPCS: 36415; 36416; 80048; 80053; 82962; 93005; 96361; 96374; 96375; 99284; 81003; 81015; 85025; 93010; J1200; J2930

== ENCOUNTER 2020-10-31 03:39 | Outpatient (CLI) | payer MEDICARE, OTHER, SELFPAY ==
[2020-11-01 15:34] LABS: COVID-19 RT-PCR UVMMC Result Negative (Negative)
== END 2020-10-31 03:59 ==
PROVIDERS: PCP Family Medicine; Visit Provider Surgery
DX: Z11.59 Encounter for screening for other viral diseases (principal); Z01.818 Encounter for other preprocedural examination
CPT/HCPCS: U0003

== ENCOUNTER 2020-11-05 08:08 | Day surgery (SDC) | payer MEDICARE, OTHER, SELFPAY ==
--- NOTE | 2020-11-05 07:13 | W.COLOREPORT ---
Date of service: 11/05/20 Time of Service: 09:38 Colonoscopy Report Date of procedure: 11/05/20 Pre-op diagnosis general: Hx of colon polyps Post-op diagnosis procedure note: same (polyps, mild diverticulosis and internal hemorrhoids) Procedure: Colonoscopy with polypectomy Surgeon: Clare Cheek Anesthesia proc note operative: other (General/ASA 2/Sidney Phelan, KANIKA) Estimated blood loss (mL): 3 Pathology: other (ascending polyp, sigmoid polyp x2) Complications: None Disposition: same day Indications: Mr. Lama is a pleasant 75-year-old gentleman who had an episode of bleeding after some loose stools. He has a history of hemorrhoids. He has not had any recurrence of the bleeding. He has a history of adenomatous colon polyps. His last colonoscopy was 2015. His primary care physician recommended another colonoscopy due to the episode of bleeding. Most likely the bleeding was from his hemorrhoids but due to the history of several tubular adenomas on previous colonoscopies I think it is reasonable to do his colonoscopy a year early. We reviewed the colonoscopy procedure as well as its risks and benefits. We also reviewed Covid testing and quarantine requirements. Risks, benefits and complications have been reviewed. Complications include but are not limited to bleeding, pain, perforation, missed small lesion/polyp, sore throat, aspiration and adverse reaction to the medications. Questions were entertained and answered to their satisfaction and they wished to proceed. No guarantees were given or implied. COVID-19 testing explained to the patient. Reason for test reviewed. Quarantine per state requirements reviewed with patient. Patient understands and agrees to testing. Prep: Miralax/Dulcolax Procedure Start Time: 09:16 Procedure End Time: :38 Retraction Time: 16 minutes Findings: 3 small sessile polyps, mild diverticulosis of the sigmoid colon Grade 2 internal hemorrhoids Procedure Description: After informed consent was obtained the patient was taken to the procedure room and placed in a left decubitous position. Monitors were applied and a time out was done. The patients name, date of , procedure, allergies to medications and metal in their body was reviewed. The patient was then sedated. Once sedated and comfortable a rectal exam was done. External exam was normal. Internal exam revealed a normal sphincter tone and no palpable masses. The prostate felt smooth, slightly enlarged. The scope was then introduced and retro-flexed. Grade 2 internal hemorrhoids were identified. No polyps or masses were identified on retro-flexion. The scope was then advanced to the cecum without difficulty. The ileocecal vlave and appendiceal orifice were identified. The prep was good. The scope was then slowly retracted over 16 minutes back into the rectum. Polyps were removed with cold forceps in the ascending colon and sigmoid colon x2. There was mild sigmoid diverticulosis noted. The scope was removed and the patient was woken up and taken back to Same day surgery in stable condition. The patient tolerated the procedure well and there were no immediate complications. Follow up: The patient should follow up in 5 years unless they develop changes in bowel habits or other new gastrointestinal complaints.
--- NOTE | 2020-11-05 07:14 | W.PM.DSUDISC ---
Discharge Plan Disposition Patient Disposition: HOME Condition: Good Discharge Details Reason For Visit: Colonoscopy Attending Provider: Clare Cheek Primary Care Provider: Gilberto Llanes Home Meds and New Rx's Prescriptions: Continued flaxseed-omega3,6,9-fatty acid 1 EACH capsule 1 ea PO DAILY RF: 0 Nexium 24HR 20 MG capsule,delayed release(DR/EC) 20 mg PO DAILY RF: 0 acetaminophen [Acetaminophen Extra Strength] 500 MG tablet 500 mg PO Q4H PRN RF: 0 PreserVision AREDS-2 1 EACH capsule 1 ea PO DAILY RF: 0 aspirin [Aspir-81] 81 MG tablet,delayed release (DR/EC) 81 mg PO DAILY RF: 0 Hold Instructions: Home Medication placed on hold at Doctor's office naproxen sodium [Aleve] 220 MG tablet 220 mg PO Q8H PRN RF: 0 Januvia 100 mg tablet 100 mg PO DAILY Qty: 90 RF: 3 avastin OD RF: 0 lisinopril 5 mg tablet 5 mg PO DAILY Qty: 90 RF: 3 glimepiride 1 mg tablet 1 mg PO DAILY Qty: 90 RF: 3 finasteride 5 mg tablet 5 mg PO DAILY Qty: 90 RF: 3 tamsulosin 0.4 mg capsule 0.4 mg PO DAILY Qty: 90 RF: 3 (DME) blood sugar diagnostic Strip 1 ea Miscellaneous BID Qty: 200 RF: 3 (DME) blood-glucose meter [6[employer]underkinderuch Ultra2 Meter] Kit 1 ea Miscellaneous BID Qty: 1 RF: 0 (DME) lancets [OneTouch UltraSoft Lancets] Misc 1 ea Miscellaneous BID Qty: 200 RF: 0 fluticasone propionate 16 GM spray,suspension 2 inh NS PRN Qty: 1 RF: 3 prednisone 20 mg tablet 40 mg PO DAILY Qty: 8 RF: 0 diphenhydramine HCl [Benadryl] 25 mg capsule 25 mg PO TID PRNQty: 9 RF: 0 Discontinued bisacodyl [Dulcolax (bisacodyl)] 5 mg tablet,delayed release (DR/EC) 5 mg PO ONCE Qty: 4 RF: 0 polyethylene glycol 3350 17 gram powder in packet 255 g PO DAILY Qty: 15 RF: 0 Discharge Instructions Instructions: Hemorrhoids (DC), Diverticulosis (DC), Colorectal Polyps (DC) Additional Instructions: Findings: a few small polyps mild diverticulosis Internal hemorrhoids Follow up: 5 years Please call if you develop: fevers >101.5 Nausea or Vomiting Abdominal pain that is not transient DAY SURGERY UNIT POST ENDOSCOPY INSTRUCTIONS 1. Because there will be medication in your system for the next 24 hours, you may feel a little sleepy. Your coordination will be affected. Therefore: a. Do not drive or operate dangerous equipment for 24 hours. b. Do not drink alcohol beverages for 24 hours (not even beer). c. Plan to go home and rest for the day. 2. Generally there are no restrictions on your activity after a day or so has gone by, but you may feel a bit fatigued for a few days. 3 After you arrive home you may have a light meal and return to a normal diet as you can tolerate it without feeling sick to your stomach. 4. After surgery, you may feel pain or discomfort. This should be only transient, but if it persists please contact your doctor. 5. If there are any questions regarding the findings of your procedure, please feel free to contact your doctor. 6. If you are unable to contact your doctor with a problem, contact the hospital at [phone]. 7. Continue all your regular medications unless directed otherwise. I understand the above instructions and have no questions. Signature of Patient or Responsible Adult Escort Date/Time Name of Responsible Adult Escort Signature of Nurse Date/Time Activity:: Activity as Tolerated Diet:: high fiber diet Discharge Orders Discharge Orders: Discharge Order (Routine); Ordered 11/05/20 Ordered By: Clare Cheek
[2020-11-05 08:30] VITALS: BP 129/87; PULSE 100; RESP 16; TEMP 36.9; O2SAT 97
[2020-11-05] MEDS: Lactated Ringers 1,000 ML 80 ML IV (08:55)
--- NOTE | 2020-11-05 09:27 | BOWEL_PTH ---
PATIENT: Claudio Lama LOC: [facility] U#:[id number] AGE/SX: 75/M ROOM: RE11/05/[address]: Clare Cheek MD : [id number] BED: DIS: 11/05/2020 SPEC #: [id number] RECD: 11/05/20 12:28 STATUS: SKYLER REQ #: [id number] JOHN: 11/05/20 09:[address]: Clare Cheek DEPT: Surgical Specimen RECD BY: Mony Varela ENTERED: 11/05/20 12:29 SP TYPE: Bowel OTHR DR: Gilberto Llanes DO Tissues: 1 - BIOPSY BOWEL 2 - BIOPSY BOWEL Procedures: GROSS AND MICRO LEVEL 4 Comments: [id number]
[2020-11-05 10:10] VITALS: BP 110/75; PULSE 83; RESP 16; TEMP 36.3; O2SAT 97
== END 2020-11-05 10:55 | disposition home or self-care (01) ==
LOC: SUR 08:09
PROVIDERS: PCP Family Medicine; Visit Provider Surgery
PROC: 0DJD8ZZ Inspection of Lower Intestinal Tract, Via Natural or Artificial Opening Endoscopic (ICD-10-PCS; CPT 45378; principal; 2020-11-05 09:15)
DX: Z12.11 Encounter for screening for malignant neoplasm of colon (principal); Z86.010 Personal history of colon polyps; K57.30 Diverticulosis of large intestine without perforation or abscess without bleeding; K63.5 Polyp of colon; K64.1 Second degree hemorrhoids; I10 Essential (primary) hypertension; K21.9 Gastro-esophageal reflux disease without esophagitis; E11.65 Type 2 diabetes mellitus with hyperglycemia; Z79.84 Long term (current) use of oral hypoglycemic drugs
CPT/HCPCS: 45380; 88305

== ENCOUNTER → 2020-12-18 10:25 | Outpatient (BNVA) | payer MEDICARE, OTHER, SELFPAY | PROVIDERS: PCP Family Medicine; Referring Provider Family Medicine; Visit Provider Physician Assistant Surgical | DX: M65.312 Trigger thumb, left thumb (principal); M23.92 Unspecified internal derangement of left knee; M25.562 Pain in left knee; X50.1XXA Overexertion from prolonged static or awkward postures, initial encounter | CPT/HCPCS: 20610; 99213; J1040 ==

== ENCOUNTER 2021-02-03 01:51 | Outpatient (CLI) | payer MEDICARE, OTHER, SELFPAY ==
--- NOTE | 2021-02-03 06:15 | DI.US_ITS ---
EXAM: US AAA SCREENING CLINICAL HISTORY: SCREENING FOR AAA,Z13.6,EX SMOKER, Z87.891,ENCOUNTER FOR COMPARISON: US ABDOMEN ULTRASOUND (P) from 07/05/2012 FINDINGS: Abdominal Aorta: Proximal: 2.5 x 2.7 cm Mid: 1.8 x 1.9 cm Distal: 1.8 x 1.9 cm Iliac's: Right: 1.1 x 1.4 cm Left: 1.3 x 1.3 cm There is atherosclerotic disease present. IMPRESSION: No evidence of abdominal aortic aneurysm. DATA REPOSITORY:
== END 2021-02-03 02:11 ==
PROVIDERS: PCP Family Medicine; Visit Provider Family Medicine
DX: Z13.6 Encounter for screening for cardiovascular disorders (principal); Z87.891 Personal history of nicotine dependence
CPT/HCPCS: 76706

== ENCOUNTER 2021-09-25 12:06 | Outpatient (CLI) | payer MEDICARE, OTHER, SELFPAY ==
--- NOTE | 2021-09-25 09:15 | DI.RAD_ITS ---
Exam(s) XR THORACIC SPINE COMPLETE EXAM: XR THORACIC SPINE COMPLETE CLINICAL HISTORY: R sided thoracic radicular symptoms M54.9 DORSALGIA. TECHNIQUE: 2D digital imaging was performed of the thoracic spine. Three views were obtained. AP, swimmer's and lateral views were obtained. COMPARISON: CR CHEST 2 VIEWS PA,LAT from 03/14/2015 CR CHEST 2 VIEWS PA,LAT from 03/14/2015 FINDINGS: BONES: There is no fracture or destructive lesion. The vertebral bodies and posterior elements are un remarkable. DISKS:There is a mild right convex curvature of the thoracic spine. Note is made of DISH in the thor acic spine. SOFT TISSUE: Visualized lungs are clear. IMPRESSION: No acute fracture or dislocation. DATA REPOSITORY: RADIATION DOSE DELIVERED:
== END 2021-09-25 12:26 ==
PROVIDERS: PCP Family Medicine; Visit Provider Family Medicine
DX: M54.9 Dorsalgia, unspecified (principal)
CPT/HCPCS: 72072

== ENCOUNTER → 2023-08-12 10:53 | Outpatient (BNVA) | payer MEDICARE, SELFPAY | PROVIDERS: PCP Family Medicine; Referring Provider Family Medicine; Visit Provider Physical Therapy Assistant | DX: I73.9 Peripheral vascular disease, unspecified (principal) | CPT/HCPCS: 93922 ==

== ENCOUNTER 2024-11-30 00:46 | Outpatient (CLI) | payer MEDICARE, SELFPAY ==
--- NOTE | 2024-11-30 07:15 | DI.US_ITS ---
Exam(s) US CAROTID EXAM: US CAROTID CLINICAL HISTORY: Dizziness,orthostasis,r55. TECHNIQUE: Ultrasound carotids performed using grayscale, color-flow, and spectral Doppler imaging. COMPARISON: No exams were available for comparison FINDINGS: RIGHT CAROTID ARTERY: Plaque: Minimal calcific plaque at the common carotid bulb. Focal calcification at the proximal exte rnal carotid artery. Velocity elevation: Velocity elevation at the proximal external carotid artery. LEFT CAROTID ARTERY: Plaque: Small foci of calcific plaque at the common carotid bulb.. Velocity elevation: Loss of the elevation the proximal external carotid artery. VERTEBRAL ARTERIES: Antegrade flow. Measurements: R Bulb: 113cm/s PS / 8.9cm/s ED R CCA: 118.5cm/s PS / 14.4cm/s ED R ECA: 312.4cm/s PS / 20.9cm/s ED R ICA Prox: 96.6cm/s PS / 14.4cm/s ED R ICA Mid: 88.4cm/s PS / 18.5cm/s ED R ICA Distal: 105.7cm/s PS /19.9cm/s ED R Vert: 72.4cm/s PS / 10.7cm/s ED R SVR: 1 R DVR: 0.6 L Bulb: 66.5cm/s PS / 12.4cm/s ED L CCA: 104.4cm/s PS / 21.5cm/s ED L ECA: 174.9cm/s PS / 12.6cm/s ED L ICA Prox: 80.8cm/s PS / 15.2cm/s ED L ICA Mid: 103.9cm/s PS / 23.5cm/s ED L ICA Distal: 111.2cm/s PS / 25.4cm/s ED L Vert: 65.1cm/s PS / 14.3cm/s ED L SVR: 1.1 L DVR: 1.2 IMPRESSION: No evidence for hemodynamically significant internal carotid artery stenosis. Minimal calcific plaqu e at the common carotid bulbs. Plaque at the origin external carotid arteries cause stenosis, right greater than left. Criteria for Carotid Stenosis: Normal: ICA PSV <125 cm/s no plaque or intimal thickening is visible. <50% stenosis: ICA PSV <125 cm/s and plaque or intimal thickening is visible. 50-69% stenosis: ICA PSV is 125-250 cm/s and plaque is visible. >70% stenosis to near occlusion: ICA PSV >250 cm/s with visible plaque and luminal narrowing. DATA REPOSITORY:
--- NOTE | 2024-11-30 12:30 | DI.US_ITS ---
APPROVED REPORT EXAM: Comprehensive 2D, Doppler, and color-flow Echocardiogram Patient Location: Out-Patient Senior Designer/Art Director: Jan Rodriguez RDCS (AE) Indications: Orthostasis Other Information Study Quality: Adequate Conclusion Normal left ventricular wall thickness and chamber size. Ejection fraction is 60%. Wall motion is n ormal Normal right ventricular size and function Both atria are normal in size Aortic valve is trileaflet and mildly sclerotic without stenosis or regurgitation There is no additional significant valvular disease Wall motion Left Ventricle The left ventricle is normal size. The left ventricular systolic function is normal. The left ventric ular ejection fraction is within the normal range. There is normal left ventricular wall thickness. T here is normal LV segmental wall motion. The left ventricular diastolic function is normal. There is no ventricular septal defect visualized. LVEF is 60%. Right Ventricle The right ventricle is normal size. The right ventricular systolic function is normal. Atria The left atrium size is normal. The right atrium size is normal. The interatrial septum is intact wit h no evidence for an atrial septal defect. Aortic Valve The aortic valve is mildly sclerotic. Aortic valve is trileaflet. There is no aortic valvular stenosi s. No aortic regurgitation is present. Mitral Valve The mitral valve is normal in structure. No evidence of mitral valve stenosis. Trace mitral regurgita tion. Tricuspid Valve The tricuspid valve is normal in structure. There is no tricuspid valve stenosis. Trace tricuspid reg urgitation. Unable to assess PA pressure. Pulmonic Valve The pulmonary valve is normal in structure. There is no pulmonic valvular stenosis. There is no pulmo melia valvular regurgitation. Great Vessels The aortic root is normal in size. The ascending aorta is normal in size. Aortic arch is not well vis ualized. IVC is normal in size and collapses >50% with inspiration. Pericardium There is no pericardial effusion. 2D Dimensions IVSD d PLAX 0.61 cm M: 0.6-1.2 Ao Root d 2.51 cm M: 3.1 - 3.7 LVPW d PLAX 0.56 cm M: 0.6 - 1.2 Ao Asc Diam d 2.96 cm M: 2.6 - 3.4 LVID d PLAX 5.48 cm M: 4.2 - 5.8 LVDs 3.70 cm M: 2.5 - 4.0 LV EF Teichholz 60.2 % FS 32.46 % LV EDV (Teich) 146.1 mL LV ESV (Teich) 58.1 mL Stroke Vol Index (Teich) 44.42 M-Mode TAPSE 2.39 cm (M/F) >1.7 Auto EF LV EDV A4C 85.8 mL LV EDV A2C 93.6 mL LV EDV BP 88.6 mL LV ESV A4C 34.7 mL LV ESV A2C 37.7 mL LV ESV BP 37.5 mL LVEF(%) A4C 59.6 % LVEF(%) A2C 59.7 % LVEF(%) BP 57.6 % LV SV A4C 51.2 ml LV SV A2C 55.9 ml LV SV BP 51.1 ml LV CO A4C 3.7 L/min LV CO A2C 3.7 L/min LV CO BP 3.7 L/min HR A4C 71.71 BPM HR A2C 66.92 BPM LV EDV Index (BP) LA Volume LA Length A4C 4.4 cm LA Length A2C 4.3 cm LA Area A4C s 9.15 cm2 LA Area A2C s 12.25 cm2 LA Vol A4C A-L 16.24 mL LA Vol A2C A-L 29.46 mL LA Vol Biplane A-L 22.0 mL LA Vol/BSA A4C A-L LA Vol/BSA A2C A-L LA Vol/BSA BP A-L 11.1 mL/m2 LA Vol A4C MOD 14.8 mL LA Vol A2C MOD 27.8 mL LA Vol BP MOD 20.3 mL RA Volume RA Area A4C 9.4 cm2 RA ESV A4C (A-L) 20.3mL RA Vol/BSA A4C A-L RA Length A4C 3.7 cm RA ESV A4C (MOD) 19.1mL LV Diastology MV E' medial 0.066 (>0.07 m/s) MV E Vmax 0.67 (0.4-1.3 m/s) MV E/E' MED 10.09 (<14) MV A Vmax 0.95 (0.4-1.3 m/s) MV E' lateral 0.141 (>0.1 m/s) E/A Ratio 0.7 MV E/E' LAT 4.72 (<14) MV E' Average 0.104 m/s MV E/E'(average) 6.43 Aortic Valve AoV Vmax 1.59 m/s LVOT Vmax 1.25 m/s AoV Peak Grad 10.1 mmHg LVOT Peak Grad 6.2 mmHg AoV Area (Vmax) 1.83 cm2 LVOT VTI 0.238 m AoV VTI 0.275 m LVOT Mean Grad 3.5 mmHg AoV Mean Vaibhav. 0.98 m/s LVOT SV 55.27 mL AoV Mean Grad 4.5 mmHg LVOT Diam s 1.70 cm AoV Area (VTI) 2.01 cm2 AV Regurg Peak Gr. 10.12 mmHg Velocity Ratio 0.79
== END 2024-11-30 01:06 ==
LOC: DI 00:46
PROVIDERS: PCP Family Medicine; Visit Provider Internal Medicine Cardiovascular Disease
DX: I95.1 Orthostatic hypotension (principal)
CPT/HCPCS: 93306; 93880